=== PATIENT | male | born 2000 | race Caucasian/White ===

== ENCOUNTER 2020-06-23 15:55 | Outpatient (REF) | payer OTHER, SELFPAY | END 2020-06-23 15:56 | disposition home or self-care (01) | LOC: HO.LAB 15:55 | PROVIDERS: Visit Provider Internal Medicine | DX: Z20.828 Contact with and (suspected) exposure to other viral communicable diseases (principal) | CPT/HCPCS: U0003 ==

== ENCOUNTER 2020-09-09 08:56 | Emergency (ER) | payer OTHER, SELFPAY ==
[2020-09-09 09:44] VITALS: BP 133/86; PULSE 60; RESP 18; TEMP 36.9; O2SAT 99; BMI 26.6
--- NOTE | 2020-09-09 10:01 | ED.GENADULT ---
HPI - General Adult General Chief complaint: General Medical Stated complaint: rectal pain Time Seen by Provider: 09/09/20 10:01 Source: patient Mode of arrival: ambulatory Limitations: no limitations History of Present Illness HPI narrative: Patient with one episode of diarrhea, no bleeding, now with rectal pain. No trauma, no fever no chill. Question of swelling Onset (ago): day(s) Severity: mild Quality: sharp Pain Consistency: intermittent Related Data Previous Rx's Medication Instructions Recorded naproxen [Naprosyn] 500 mg PO BID #20 tab 09/09/20 Allergies Allergy/AdvReac Type Severity Reaction Status Date / Time amoxicillin Allergy Angioedema Verified 09/09/20 09:47 Penicillins Allergy Angioedema Verified 09/09/20 09:47 Review of Systems Constitutional: Constitutional: Reports no additional constitutional complaints Eyes: Eyes: Reports no additional eye complaints ENT: Denies dizziness Cardiovascular: Cardiovascular: Reports no additional cardiovascular complaints Respiratory: Respiratory: Reports as per HPI Gastrointestinal: Gastrointestinal: Reports no additional gastrointestinal complaints Musculoskeletal: Musculoskeletal: Reports no additional musculoskeletal complaints Integumentary/Breasts: Skin/Breast: Denies rash Neurologic: Reports system reviewed and no additional complaints, except as documented, Denies dizziness and Denies Sensory deficit (Neuro) Psychiatric: Psychiatric: Denies anxiety [facility] [place] Past Medical History Medical History No known health problems Social History Social History Advance Directives: No Advance Directives Information Provided: Yes Physical Exam Vital Signs: Vital Signs: Last Vital Signs Temp 98.5 F 09/09/20 09:44 Pulse 60 09/09/20 09:44 Resp 18 09/09/20 09:44 BP 133/86 09/09/20 09:44 Pulse Ox 99 09/09/20 09:44 Body Mass Index 26.6 Const: General: healthy appearing Nutritional Appearance: average body habitus Orientation/consciousness: oriented to person and patient oriented x3 Limitations: no limitations HENMT: Head: Yes normal to inspection Ears: external ears normal General nose exam: Normal external nose present Mouth: Normal oral and palatal mucosa present and oropharynx normal Throat: Yes posterior oropharynx normal Eyes: General: appearance normal, both eyes and all related structures Neck: Other: supple Neck: Yes normal visual inspection Chest: Chest palpation & inspection: normal inspection of the chest Resp: Auscultation: clear to auscultation bilaterally Cardio: Jugular venous distension: no JVD Rate: regular rate Rhythm: regular rhythm Heart sounds: S1 normal heart sound present and S2 normal heart sound present GI: Inspection: Yes normal to inspection Palpation (GI): Soft to palpation, nontender and No hepatosplenomegaly present Auscultation: normal bowel sounds : Other: small rectal fissure, no hemorrhoids, no abscess felt. No active bleeding Skin: General skin exam: no rashes or lesions noted Neuro: General: oriented to person and patient oriented x3 Cranial nerves: Yes CN's II-XII intact bilaterally Motor exam (neuro): 5/5 motor strength present throughout Sensory Exam: No Sensory deficit (Neuro) Extrem: General: Yes normal to inspection Psych: Appearance: grossly normal Course Course Course Narrative: will treat with sits baths and NSAIDS Discharge Plan Discharge Clinical Impression: Rectal fissure Patient Disposition: Home, Self-Care Instructions: Anal Fissure (ED) Additional Instructions: sits baths and NSAIDs as directed Prescriptions: New naproxen [Naprosyn] 500 mg tablet 500 mg PO BID Qty: 20 RF: 0 Referrals: Godfrey Olmedo MD [Primary Care Provider] - 2 days
== END 2020-09-09 10:16 | disposition home or self-care (01) ==
PROVIDERS: Emergency Provider Emergency Medicine; PCP Pediatrics
DX: K60.2 Anal fissure, unspecified (principal)
CPT/HCPCS: 99283

== ENCOUNTER 2021-01-21 11:14 | Emergency (ER) | payer OTHER, SELFPAY ==
--- NOTE | ~2021-01-21 | XR_ITS ---
EXAMINATION: XR CHEST CLINICAL INFORMATION: Cough COMPARISON: April 16, 2017 TECHNIQUE: AP portable view of the chest was obtained. FINDINGS: No significant abnormality is noted involving the heart, lungs, mediastinum, bony thorax or soft tissues. XR/XR chest 1V IMPRESSION: No acute disease.
[2021-01-21 11:35] VITALS: BP 127/71; PULSE 83; RESP 16; TEMP 37; O2SAT 97; BMI 25.0
--- NOTE | 2021-01-21 12:37 | ED.URI ---
HPI - URI/Sore Throat General Chief Complaint: Upper Respiratory Symptoms Stated Complaint: covid like symptoms Time Seen by Provider: 01/21/21 11:57 History of Present Illness HPI Narrative: Patient complains of cough worsening with sputum, shortness of breath with wheezing, sore throat, body aches the subjective fever over last several days, he went to urgent care 2 days ago and had a negative COVID and negative strep throat, strep throat test was negative Sore throat is improving but wheezing is getting worse and now cough is productive of sputum Related Data Previous Rx's Medication Instructions Recorded naproxen [Naprosyn] 500 mg PO BID #20 tab 09/09/20 albuterol sulfate 2 inh INHALATION Q4H PRN #1 ea 01/21/21 azithromycin [Zithromax Z-Trae] See Rx Instructions .ROUTE 01/21/21 .COMPLEX #6 tab prednisone 60 mg PO DAILY 5 Days #15 tab 01/21/21 Allergies Allergy/AdvReac Type Severity Reaction Status Date / Time amoxicillin Allergy Angioedema Verified 09/09/20 09:47 Penicillins Allergy Angioedema Verified 09/09/20 09:47 Review of Systems Review of Systems: Positive for sore throat cough and wheezing Negatives are no fever no chills no dizziness no weakness no fainting no feeling faint no headache no ear pain no difficulty breathing or swallowing no palpitations no abdominal pain no nausea vomiting or diarrhea no skin rash Yes all other systems are reviewed and are negative [facility] Past Medical History Source: nursing notes reviewed Medical History No known health problems Social History Social History Advance Directives: Yes Advance Directives Information Provided: Yes Advance Directives on File: No Physical Exam Vital Signs: Vital Signs: Last Vital Signs Temp 98.7 F 01/21/21 14:10 Pulse 82 01/21/21 14:10 Resp 16 01/21/21 14:10 BP 130/66 01/21/21 14:10 Pulse Ox 97 01/21/21 14:10 Body Mass Index 25.0 General appearance is no acute distress, speaking full sentences and O x3 The eyes are clear with no redness or discharge The sinuses are nontender The pharynx is normal and well hydrated with no redness exudate or swelling, voice is normal no drooling Neck is supple without lymphadenopathy The chest had bilateral wheezing, with good air movement no respiratory distress Heart no murmur Abdomen soft nontender Extremities no edema no calf tenderness or swelling Skin no rash Course Course Course Narrative: COVID test and chest x-ray were negative As patient was wheezing a lot he was treated with a nebulizer with some feeling improved, vital signs remained stable breathing at a rate of 16 speaking full sentences but wheezing was only mildly improved there was still bilateral expiratory wheezes, but as he is comfortable he is discharged home started on prednisone As cough is worsening and productive sputum I prescribed Zithromax antibiotic as well MDM - URI/Sore Throat Lab Data Labs: Lab Results 01/21/21 Range/Units 12:11 COVID-19 (JAYESH) Negative (Negative) COVID-19 Clin Com See Note Discharge Plan Discharge Clinical Impression: Asthma, Bronchitis Patient Disposition: Home, Self-Care Additional Instructions: We prescribed antibiotic Zithromax for the worsening cough Albuterol as needed for wheezing Prednisone reduces inflammation and helps asthma Return any time for any worsening difficulty breathing any worse condition any concerns Prescriptions: New albuterol sulfate 90 mcg/actuation aerosol powdr breath activated 2 inh inhalation Q4H PRN (Reason: shortness of breath or wheezing) Qty: 1 RF: 0 azithromycin [Zithromax Z-Trae] 250 mg tablet See Rx Instructions .ROUTE .COMPLEX Qty: 6 RF: 0 prednisone 20 mg tablet 60 mg PO DAILY 5 Days Qty: 15 RF: 0 No Action naproxen [Naprosyn] 500 mg tablet 500 mg PO BID Qty: 20 RF: 0 Stand Alone Forms: Work/School Release Interventions: ED Discharge Assessment Last Done: 01/21/21 14:09 Discharge Date/Time: 01/21/21 14:11
[2021-01-21 12:52] VITALS: O2SAT 95
[2021-01-21] MEDS: Albuterol/Iprat 2.5/0.5MG 3 ML AMPUL.NEB INHALE (12:52)
[2021-01-21 12:56] LABS: COVID-19 Test Negative (Negative); IDNOW Serial# 9DD0AD1C
[2021-01-21] MEDS: predniSONE 20 MG TABLET 60 MG PO (13:23)
[2021-01-21 14:10] VITALS: BP 130/66; PULSE 82; RESP 16; TEMP 37.1; O2SAT 97
== END 2021-01-21 14:11 | disposition home or self-care (01) ==
PROVIDERS: Physician Assistant Medical; Emergency Provider Emergency Medicine
DX: J40 Bronchitis, not specified as acute or chronic (principal); Z20.822 Contact with and (suspected) exposure to COVID-19; J02.9 Acute pharyngitis, unspecified
CPT/HCPCS: 36415; 71045; 87635; 94640; 99284

== ENCOUNTER 2023-02-03 10:50 | Emergency (ER) | payer OTHER, SELFPAY ==
[2023-02-03 11:18] VITALS: BP 113/71; PULSE 79; RESP 18; TEMP 36.4; O2SAT 98; BMI 25.0
--- NOTE | 2023-02-03 11:20 | ED.SKABFB ---
HPI - Skin/Abscess/Foreign Bdy General Chief complaint: Skin/Abscess/Foreign Body Stated complaint: cyst Time Seen by Provider: 02/03/23 13:09 History of Present Illness HPI narrative: Patient complains of recurrent pilonidal abscess which has been developing over last several days no fever no chills no vomiting no abdominal pain no other complaints Related Data Previous Rx's Medication Instructions Recorded naproxen 500 mg tablet (Naprosyn) 500 mg PO BID #20 tabs 09/09/20 albuterol sulfate 90 mcg/actuation 2 inh inhalation Q4H PRN shortness 01/21/21 breath activated powder inhaler of breath or wheezing #1 ea azithromycin 250 mg tablet See Rx Instructions PO .COMPLEX #6 01/21/21 (Zithromax Z-Trae) tabs prednisone 20 mg tablet 60 mg PO DAILY 5 days #15 tabs 01/21/21 doxycycline hyclate 100 mg tablet 100 mg PO BID 7 days #14 tabs 02/03/23 ibuprofen 600 mg tablet 600 mg PO Q6H PRN pain #20 tabs 02/03/23 oxycodone 5 mg tablet 5 mg PO Q6H PRN pain #10 tabs 02/03/23 Allergies Allergy/AdvReac Type Severity Reaction Status Date / Time amoxicillin Allergy Angioedema Verified 09/09/20 09:47 Penicillins Allergy Angioedema Verified 09/09/20 09:47 [facility] Past Medical History Source: nursing notes reviewed Medical History No known health problems Social History Social History Advance Directives: No Advance Directives Information Provided: Yes Physical Exam Vital Signs: Vital Signs: Last Vital Signs Temp 97.6 F 02/03/23 11:18 Pulse 79 02/03/23 11:18 Resp 18 02/03/23 11:18 BP 113/71 02/03/23 11:18 Pulse Ox 98 02/03/23 11:18 O2 Del Method Room Air 02/03/23 11:18 BMI result Body Mass Index 25.0 General appearance no distress Neck is supple Respiratory no distress Abdomen soft nontender Skin exam in the pilonidal area there is a hard red lump in the gluteal cleft, mostly on the right side of the gluteal cleft, there is no surrounding erythema, no other redness or tenderness in the area Course Course Course Narrative: This is a rapid medical exam. Deferred additional HPI, ROS, PE to primary provider. 23 yo male here with abscess in buttocks area, unable to visualize in tria Procedure note the areas cleansed with Betadine anesthesia was initially 8 cc of 1% lidocaine Of 1 cm a vision was may, with no discharge of pus, this was probed to the full extent of the forceps in all directions, he did require more anesthesia for this and there was no significant discharge of pus I attempted to aspirate the hard red lump in the pilonidal area which may be an area of cellulitis or scar tissue and was not able to aspirate anything from that lump and again probing beneath it did not discharge any significant quantity of pus, packing was placed Patient is advised that this may be a cellulitis but as we did get a large quantity of pus it needs to be recheck in 2-3 days he will come back here He does have a surgeon at [facility] and if they have an appointment he will follow-up with them Medications Administered Discontinued Medications Generic Name Dose Route Start Last Admin Trade Name Freq PRN Reason Stop Dose Admin Doxycycline Monohydrate 100 mg 02/03/23 13:18 02/03/23 13:23 Doxycycline Monohydrate 100 Mg Capsule PO 02/03/23 13:19 100 mg ONCE ONE Administration Ibuprofen 600 mg 02/03/23 13:54 02/03/23 13:58 Ibuprofen 600 Mg Tablet PO 02/03/23 13:55 600 mg ONCE ONE Administration Lidocaine HCl 5 ml 02/03/23 13:18 02/03/23 13:24 Lidocaine Hcl 1 % Mpf 5 Ml Vial SUBCUT 02/03/23 13:19 5 ml ONCE ONE Administration Lidocaine HCl 5 ml 02/03/23 13:19 02/03/23 13:24 Lidocaine Hcl 1 % Mpf 5 Ml Vial SUBCUT 02/03/23 13:20 5 ml ONCE ONE Administration Oxycodone HCl 5 mg 02/03/23 13:54 02/03/23 13:58 Oxycodone Hcl Immed Release 5 Mg Tablet PO 02/03/23 13:55 5 mg ONCE ONE Administration Oxycodone HCl 5 mg 02/03/23 14:21 02/03/23 14:29 Oxycodone Hcl Immed Release 5 Mg Tablet PO 02/03/23 14:22 5 mg ONCE ONE Administration Discharge Plan Discharge Clinical Impression: Pilonidal abscess Patient Disposition: Home, Self-Care Additional Instructions: Return to the ER in 2 days, Tuesday for a recheck I was surprised that I did not get significant pus from the abscess cavity which was probed deeply, it may be that the red hard area in the pilonidal area is infected without a pus collection yet so we put you on doxycycline antibiotic Return any time for spreading redness, worse pain and swelling, fever, any sign of worsening infection or any worse condition or concerns Prescriptions: New doxycycline hyclate 100 mg tablet 100 mg PO BID 7 Days Qty: 14 0RF oxycodone 5 mg tablet 5 mg PO Q6H PRN (Reason: pain) Qty: 10 0RF Rx Instructions: Partial Fill upon patient request. ibuprofen 600 mg tablet 600 mg PO Q6H PRN (Reason: pain) Qty: 20 0RF No Action naproxen [Naprosyn] 500 mg tablet 500 mg PO BID Qty: 20 0RF albuterol sulfate 90 mcg/actuation aerosol powdr breath activated 2 inh inhalation Q4H PRN (Reason: shortness of breath or wheezing) Qty: 1 0RF azithromycin [Zithromax Z-Trae] 250 mg tablet See Rx Instructions .ROUTE .COMPLEX Qty: 6 0RF Rx Instructions: take 500 mg today (day 1), then 250 mg for 4 days (days 2-5) prednisone 20 mg tablet 60 mg PO DAILY 5 Days Qty: 15 0RF
[2023-02-03] MEDS: Doxycycline Monohydrate 100 MG CAPSULE PO (13:23)
[2023-02-03] MEDS: Lidocaine HCl 1 % MPF 5 ML VIAL SUBCUT ×2 (13:24)
[2023-02-03] MEDS: oxyCODONE HCl Immed Release 5 MG TABLET PO ×2 (13:58→14:29)
[2023-02-03] MEDS: Ibuprofen 600 MG TABLET PO (13:58)
== END 2023-02-03 14:57 | disposition home or self-care (01) ==
PROVIDERS: Emergency Provider Emergency Medicine; PCP Internal Medicine
DX: L05.01 Pilonidal cyst with abscess (principal); Z79.899 Other long term (current) drug therapy
CPT/HCPCS: 99283; 99284

== ENCOUNTER 2023-02-06 14:41 | Emergency (ER) | payer OTHER, SELFPAY ==
[2023-02-06 14:55] VITALS: BP 116/64; PULSE 90; RESP 18; TEMP 36.6; O2SAT 98; BMI 25.0
--- NOTE | 2023-02-06 15:44 | ED_ITS ---
HPI - Wound/Laceration General Chief Complaint: Wound/Laceration Stated Complaint: follow up? Time Seen by Provider: 02/06/23 15:31 Source: patient Mode of arrival: ambulatory Limitations: no limitations History of Present Illness HPI narrative: 23-year-old male here for wound check. Patient reports he was seen here 2 days ago and had a pilonidal abscess drained was started on doxycycline. The packing fell out prior to the patient coming back in today. He does report some continued pain and swelling. No fevers or chills. Related Data Previous Rx's Medication Instructions Recorded naproxen 500 mg tablet (Naprosyn) 500 mg PO BID #20 tabs 09/09/20 albuterol sulfate 90 mcg/actuation 2 inh inhalation Q4H PRN shortness 01/21/21 breath activated powder inhaler of breath or wheezing #1 ea azithromycin 250 mg tablet See Rx Instructions PO .COMPLEX #6 01/21/21 (Zithromax Z-Trae) tabs prednisone 20 mg tablet 60 mg PO DAILY 5 days #15 tabs 01/21/21 doxycycline hyclate 100 mg tablet 100 mg PO BID 7 days #14 tabs 02/03/23 ibuprofen 600 mg tablet 600 mg PO Q6H PRN pain #20 tabs 02/03/23 oxycodone 5 mg tablet 5 mg PO Q6H PRN pain #10 tabs 02/03/23 sulfamethoxazole 800 1 tab PO BID #14 tabs 02/06/23 mg-trimethoprim 160 mg tablet (Bactrim DS) Allergies Allergy/AdvReac Type Severity Reaction Status Date / Time amoxicillin Allergy Angioedema Verified 02/06/23 14:55 Penicillins Allergy Angioedema Verified 02/06/23 14:55 Review of Systems Review of Systems: Yes all other systems are reviewed and are negative Constitutional: Constitutional: Reports no additional constitutional complaints, Denies body ache(s), Denies chills, Denies fever(s), Denies he adache(s) and Denies weakness Eyes: Eyes: Reports no additional eye complaints and Denies change in vision ENT: Reports system reviewed and no additional complaints, except as documented, Denies dizziness, Denies headache(s), Denies nasal congestion, Denies nasal discharge and Denies neck pain Cardiovascular: Cardiovascular: Reports no additional cardiovascular complaints, Denies chest pain, Denies leg edema and Denies dyspnea Respiratory: Respiratory: Reports no additional respiratory complaints, Denies cough and Denies dyspnea Gastrointestinal: Gastrointestinal: Reports no additional gastrointestinal complaints, Denies abdominal pain, Denies diarrhea, Denies nausea and Denies vomiting Genitourinary: Genitourinary: Denies urinary incontinence Musculoskeletal: Musculoskeletal: Reports no additional musculoskeletal complaints, Denies back pain, Denies arthralgias, Denies joint swelling, Denies neck pain, Denies numbness and Denies tingling Integumentary/Breasts: Skin/Breast: Reports system reviewed and no additional complaints, except as docu, Reports swelling, Reports erythema and Denies rash Neurologic: Reports system reviewed and no additional complaints, except as documented, Denies Abnormal speech present, Denies dizziness, Denies headach e(s), Denies numbness, Denies tingling and Denies weakness PMFSH Past Medical History Attestation statement: The following information was validated with the patient. Source: old records reviewed and nursing notes reviewed Medical History No known health problems Social History Social History Advance Directives: No Advance Directives Information Provided: No Physical Exam Vital Signs: Vital Signs: Last Vital Signs Temp 98 F 02/06/23 14:55 Pulse 90 02/06/23 14:55 Resp 18 02/06/23 14:55 BP 116/64 02/06/23 14:55 Pulse Ox 98 02/06/23 14:55 O2 Del Method Room Air 02/06/23 14:55 BMI result Body Mass Index 25.0 Const: General: cooperative, healthy appearing, comfortable and no acute distress Orientation/consciousness: patient oriented x3 Limitations: no limitations HEENT: Head: Yes normal to inspection Ears: hearing grossly normal bila terally General nose exam: Normal external nose present Face and sinus: Yes normal facial exam Mouth: Normal oral and palatal mucosa present Throat: Yes posterior oropharynx normal Eyes: General: appearance normal, both eyes and all related structures Pupils: Equal, round and reactive pupils present Neck: Neck: Yes normal visual inspection Chest: Chest palpation & inspection: normal inspection of the chest Resp: Effort & Inspection: normal respiratory effort Auscultation: clear to auscultation bilaterally Cardio: Rate: regular rate Rhythm: regular rhythm Peripheral pulses: Peripheral pulses 2+ throughout GI: Inspection: Yes normal to inspection Palpation (GI): Soft to palpation and nontender Auscultation: normal bowel sounds Back/Spine/Pelvis: Thoracic/Lumbar Spine: thoracic and lumbar spine normal to inspection Back/spine/pelvis image: 1. There is a pilonidal abscess present. When I press on the area surrounding the abscess I am able to express all large amount of purulent drainage from the site. Skin: General skin exam: no rashes or lesions noted Neuro: General: patient oriented x3, no focal motor deficits and normal sensation to monofilament Cranial nerves: Yes Equal, round and reactive pupils present Cognition (Neuro): normal cognition Speech: No Abnormal speech present Gait exam (Neuro): Normal gait present Motor exam (neuro): 5/5 motor strength present throughout Extrem: General: Yes normal to inspection Medical Decision Making Medical Decision Making MDM Narrative: 23-year-old male seen here several days ago for pilonidal abscess, had incision and drainage and started on doxycycline. Patient returns today for wound check. Patient states packing fell out prior to arrival. Patient reports continued pain and swelling. On exam patient has a pilonidal abscess present. When I press around the pil onidal abscess I am able to express a large amount of purulent drainage. I did recommend additional incision and drainage today but the patient declined this. Will start patient on Bactrim.. Patient would like to referred to a general surgeon. Differential Diagnosis Differential Diagnoses: The differential diagnosis associated with the presentation includes Pilonidal abscess Discharge Plan Discharge Clinical Impression: Pilonidal abscess Patient Disposition: Home, Self-Care Instructions: Pilonidal Cyst (ED), Sitz Bath (DC) Additional Instructions: Stop doxycycline. Start bactrim Continue warm compresses or do the sitz baths Prescriptions: New sulfamethoxazole-trimethoprim [Bactrim DS] 800-160 mg tablet 1 tab PO BID Qty: 14 0RF No Action naproxen [Naprosyn] 500 mg tablet 500 mg PO BID Qty: 20 0RF albuterol sulfate 90 mcg/actuation aerosol powdr breath activated 2 inh inhalation Q4H PRN (Reason: shortness of breath or wheezing) Qty: 1 0RF azithromycin [Zithromax Z-Trae] 250 mg tablet See Rx Instructions .ROUTE .COMPLEX Qty: 6 0RF Rx Instructions: take 500 mg today (day 1), then 250 mg for 4 days (days 2-5) prednisone 20 mg tablet 60 mg PO DAILY 5 Days Qty: 15 0RF doxycycline hyclate 100 mg tablet 100 mg PO BID 7 Days Qty: 14 0RF oxycodone 5 mg tablet 5 mg PO Q6H PRN (Reason: pain) Qty: 10 0RF Rx Instructions: Partial Fill upon patient request. ibuprofen 600 mg tablet 600 mg PO Q6H PRN (Reason: pain) Qty: 20 0RF Referrals: Nino Gaemz MD [Physician] - 5 days
== END 2023-02-06 17:17 | disposition home or self-care (01) ==
PROVIDERS: Emergency Provider Student in an Organized Health Care Education/Training Program; PCP Internal Medicine
DX: L05.01 Pilonidal cyst with abscess (principal)
CPT/HCPCS: 99281; 99283

== ENCOUNTER → 2023-02-08 09:16 | Outpatient (BNVA) | payer OTHER, SELFPAY | PROVIDERS: PCP Internal Medicine; Referring Provider Internal Medicine; Visit Provider Surgery | DX: L05.01 Pilonidal cyst with abscess (principal) | CPT/HCPCS: 99202 ==

== ENCOUNTER 2023-02-08 13:05 | Day surgery (SDC) | payer OTHER, SELFPAY ==
[2023-02-08 13:28] VITALS: BMI 24.0
[2023-02-08 13:32] VITALS: BP 111/65; PULSE 82; RESP 18; TEMP 36.6; O2SAT 97
[2023-02-08] MEDS: Lactated Ringers 1,000 ML 50 ML IVCONT (13:53)
[2023-02-08 14:09] VITALS: PULSE 72; RESP 16; O2SAT 97
[2023-02-08] MEDS: Albuterol Sulfate (0.083%) 2.5 MG/3 ML VIAL.NEB INHALE (14:09)
--- NOTE | 2023-02-08 14:46 | HO.ANESPROP2 ---
HPI - Anesthesia Eval Consult details Narrative: for I&D abscess PMFSH Active Problems Active Problems: All Active Problems (Updated 02/08/23 @ 09:39 by Norbert Rios MD) Pilonidal abscess of cleft (Acute) Past Medical History Medical History (Updated 02/08/23 @ 09:27 by AMAURY Morse) No known health problems Pilonidal cyst Family History Family history of problems with anesthesia: No Surgical History History of Problems with Anesthesia: No Social History Social History (Updated 02/08/23 @ 09:30 by AMAURY Morse) Alcohol intake: current Alcohol intake frequency: a few times a week Alcohol type: hard liquor Patient Tobacco Use Status: Current everyday Tobacco user Tobacco use type: Cigarette Cigarette Packs Per Day: 1 Cigarettes Per Day: 20.0 Date Education Initiated: 02/08/23 Use of substances other than those prescribed or required for medical reasons: Yes Substance Use Type: Marijuana Substance Use Type Other:: daily, none today Are you DNR?: No Advance Directives: No Advance Directives Information Provided: Yes Meds Allergies Allergy/AdvReac Type Severity Reaction Status Date / Time amoxicillin Allergy Angioedema Verified 02/08/23 09:26 Penicillins Allergy Angioedema Verified 02/08/23 09:26 Active Medications: Current Medications Lactated Ringer's (Lr) 1,000 mls @ 50 mls/hr IVCONT .Q20H CRISTINA Last Admin: 02/08/23 13:53 Dose: 50 mls/hr Clindamycin Phosphate (Cleocin) 900 mg in 50 mls @ 50 mls/hr IV PREOP ONE Stop: 02/08/23 15:35 Home Medications Medication Instructions Recorded Confirmed Last Taken Type bictegravir 50 mg-emtricitabine 1 tab PO DAILY 02/08/23 02/08/23 02/08/23 History 200 mg-tenofovir alafenam 25 mg tablet (Biktarvy) Exam Exam Date and Time: February 08, 2023 1446 Height,Weight and Vital Signs: Height 5 ft 6.5 in Weight 68.492 kg Last Vital Signs Temp 97.9 F 02/08/23 13:32 Pulse 72 02/08/23 14:09 Resp 16 02/08/23 14:09 BP 111/65 02/08/23 13:32 Pulse Ox 97 02/08/23 13:32 O2 Del Method Room Air 02/08/23 13:32 Airway Mallampati Class: I TM Dist: >3cm Neck ROM: Full Loose/Missing/Broken Teeth: No Heart: ok Lungs: ok Assessment and Plan Assessment Anesthesia Assessment: Anesthesia Plan Discussed and Chart Reviewed Final Anesthetic Review Family History of Problems with Anesthesia: No History of Problems with Anesthesia: No NPO: Yes ASA Class: I and Emergency Final Preanesthetic Review: No Changes in Pt Med Stat, Meds/Allgs Chart Reviewed, Consent Obtained/Reviewed and Anes Risks/Benef Reviewed Patient Risk: Low Procedure Risk: Low Anesthetic Plan Anesthetic Plan: MAC: and Agree w/ Assess. and Plan Disposition: Standard PACU
--- NOTE | 2023-02-08 15:28 | W.PM.OPN ---
Operative Note Operative Note Date of Service: 02/08/23 Narrative: Preoperative diagnosis: [] pilonidal abscess of cleft Postop diagnosis: [] Same Procedure [] incision and drainage of pilonidal abscess of cleft Surgeon: [] Gabriel Tube Building Machine Operator: [] eddie Monterroso Type of Anesthesia: [] Mass Indication for surgery: [] Moderately sized abscess of cleft from pilonidal cyst infection Findings: [] Patient brought to the operating room, placed on table in supine position, after adequate level of MAC anesthesia was induced, patient placed in a right lateral decubitus position. The damián cleft area was prepped and draped in usual sterile fashion. Wound was infiltrated with 1% lidocaine/0.5% Marcaine infiltration. A longitudinal incision was made just left of midline over the most fluctuant area and carried down through skin, subcutaneous tissue, where chronic abscess cavity was identified. Purulent material was retrieved. Cultures were taken. Wound was debrided of necrotic debris. Wound was then irrigated, secured hemostasis, and packed with 1 in packing followed by 4 x 4 dressings. Sponge, needle, and instrument counts were reported to be correct. Patient tolerated procedure well and emerged from anesthesia in stable condition. EBL minimal
[2023-02-08 15:44] VITALS: BP 116/70; PULSE 92; RESP 20; TEMP 37; O2SAT 100
[2023-02-08 15:59] VITALS: BP 120/67; PULSE 82; RESP 18; O2SAT 99
[2023-02-08 16:14] VITALS: BP 112/62; PULSE 83; RESP 16; TEMP 37.1; O2SAT 99
== END 2023-02-08 16:28 | disposition home or self-care (01) ==
PROVIDERS: PCP Internal Medicine; Visit Provider Surgery
PROC: (CPT 11770; principal; 2023-02-08 14:40)
DX: L05.01 Pilonidal cyst with abscess (principal); B95.1 Streptococcus, group B, as the cause of diseases classified elsewhere; J45.909 Unspecified asthma, uncomplicated; Z21 Asymptomatic human immunodeficiency virus [HIV] infection status; Z79.899 Other long term (current) drug therapy; Z88.0 Allergy status to penicillin; Z88.1 Allergy status to other antibiotic agents; F17.210 Nicotine dependence, cigarettes, uncomplicated; F12.90 Cannabis use, unspecified, uncomplicated
CPT/HCPCS: 11770; 87070; 87147; 87205; 94640; J1885; J2250; J2405; J2795

== ENCOUNTER → 2023-02-09 11:00 | Outpatient (BNVA) | payer OTHER, SELFPAY | PROVIDERS: PCP Internal Medicine; Visit Provider Surgery | DX: Z48.89 Encounter for other specified surgical aftercare (principal) | CPT/HCPCS: 99211 ==

== ENCOUNTER → 2023-02-10 13:58 | Outpatient (BNVA) | payer OTHER, SELFPAY | PROVIDERS: PCP Internal Medicine; Visit Provider Surgery | DX: L05.91 Pilonidal cyst without abscess (principal) | CPT/HCPCS: 99211 ==

== ENCOUNTER → 2023-02-11 10:54 | Outpatient (BNVA) | payer OTHER, SELFPAY | PROVIDERS: PCP Internal Medicine; Visit Provider Surgery | DX: Z48.1 Encounter for planned postprocedural wound closure (principal) | CPT/HCPCS: 99211 ==

== ENCOUNTER → 2023-02-14 14:54 | Outpatient (BNVA) | payer OTHER, SELFPAY | PROVIDERS: PCP Internal Medicine; Visit Provider Surgery | DX: Z48.00 Encounter for change or removal of nonsurgical wound dressing (principal) | CPT/HCPCS: 99211 ==

== ENCOUNTER → 2023-02-16 13:59 | Outpatient (BNVA) | payer OTHER, SELFPAY | PROVIDERS: PCP Internal Medicine; Visit Provider Surgery ==

== ENCOUNTER 2023-03-14 10:47 | Outpatient (AMB) | payer OTHER, SELFPAY ==
[2023-03-14 11:01] VITALS: BP 134/68; PULSE 77; BMI 24.4
--- NOTE | 2023-03-14 11:01 | MHC.OFFVIS ---
Intake Vital Signs 03/14/23 11:01 Height 5 ft 6 in Weight 151 lb BMI 24.4 BP 134/68 Blood Pressure Location Rt brachial Position Sitting Pulse 77 Intake Visit Reasons: 4 wk follow up pilonidal cyst Intake Note: Patient here s/p pilonidal cyst excision. Reports incision healed well. Denies bleeding, itch or discomfort. No longer taking pain meds. Automotive Vehicle Inspector Required: No Accompanied by: Self / Same As Patient Allergies amoxicillin Allergy (Verified 03/14/23 11:02) Angioedema Penicillins Allergy (Verified 03/14/23 11:02) Angioedema HPI HPI Comments History of Present Illness Details Patient presents for follow-up. Status post I and D of pilonidal abscess. He has had multiple bouts of this. He wished to have this excised. Patient presents with his significant other. [facility] Medical History No known health problems Pilonidal cyst Social History Alcohol intake: current Alcohol intake frequency: a few times a week Alcohol type: hard liquor Patient Tobacco Use Status: Current everyday Tobacco user Tobacco use type: Cigarette Cigarette Packs Per Day: 1 Cigarettes Per Day: 20.0 Substance Use Type: Marijuana Physical Exam Vital Signs: Last Vital Signs Pulse 77 03/14/23 11:01 BP 134/68 03/14/23 11:01 BMI result Body Mass Index 24.4 Chest Other: Chest breath sounds bilaterally, HS 1 in 2 GI Other: Abdomen soft, benign Back/Spine/Pelvis Other: Pilonidal wound of cleft is healing by secondary intention is almost completely healed. Assessment & Plan Assessment & Plan (1) Pilonidal abscess of cleft: Code(s): L05.01 - Pilonidal cyst with abscess Plan Risks, benefits, alternatives of excision of pilonidal cyst of cleft reviewed with patient and significant other and included but not limited to bleeding, infection, recurrence, numbness, pain, scarring, dehiscence formation, seroma formation and patient wishes to proceed. All questions were answered. Arrangements will be made for this. Coding Level of Care Code Est Pt Level 4 (60497) Diagnoses Pilonidal abscess of damián cleft L05.01
== END 2023-03-14 11:13 | disposition home or self-care (01) ==
PROVIDERS: PCP Internal Medicine; Visit Provider Surgery
DX: L05.01 Pilonidal cyst with abscess (principal)
CPT/HCPCS: 99214

== ENCOUNTER → 2023-03-14 10:47 | Outpatient (BNVA) | payer OTHER, SELFPAY | PROVIDERS: PCP Internal Medicine; Visit Provider Surgery | DX: L05.01 Pilonidal cyst with abscess (principal) | CPT/HCPCS: 99212 ==

== ENCOUNTER 2023-03-25 08:26 | Day surgery (SDC) | payer OTHER, SELFPAY ==
[2023-03-22 09:58] VITALS: BMI 24.4
[2023-03-25] VITALS (12 sets, daily range): BP systolic 90–126; BP diastolic 53–74; PULSE 52–91; RESP 16–20; TEMP 36.2–36.4; O2SAT 97–100; BMI 25.0
--- NOTE | 2023-03-25 04:42 | MHC.SHP ---
Pre-Procedural Eval Section A Date of Service: 03/25/23 The patient is an INPATIENT: No Changes since office visit: No Cold of Flu in the past 2 weeks, No New Medical Problems, No Changes in Medication and No Patient answered all questions The History & Physical has been completed within 30 days and I have reviewed it.: Yes Section B Chief Complaint: Pilonidal cyst with abscess Allergies: Allergies Allergy/AdvReac Type Severity Reaction Status Date / Time amoxicillin Allergy Severe Angioedema Verified 03/22/23 09:56 Penicillins Allergy Severe Angioedema Verified 03/22/23 09:56 Plan I have reviewed the history and physical and performed a pertinent physical examination on my patient. No changes have occurred unless specified. Time Spent With Patient Time: Total time managing care of this patient today ____ minutes.
[2023-03-25] MEDS: Lactated Ringers 1,000 ML 100 ML IVCONT (09:02)
--- NOTE | 2023-03-25 09:57 | P.CONAN_ITS ---
HPI - Anesthesia Eval Consult details Narrative: Recurrent pilonidal cyst PMFSH Active Problems Active Problems: All Active Problems (Updated 03/22/23 @ 09:53 by Jenny Lewis RN) Pilonidal abscess of cleft (Acute) Past Medical History Medical History (Updated 03/22/23 @ 09:52 by Jenny Lewis RN) Asthma Pilonidal cyst Family History Family history of problems with anesthesia: No Surgical History Surgical History (Updated 03/22/23 @ 09:53 by Jenny Lewis RN) History of incision and drainage History of Problems with Anesthesia: No Social History Social History Alcohol intake: current Alcohol intake frequency: a few times a week Alcohol type: hard liquor Patient Tobacco Use Status: Former Tobacco user Tobacco use type: Cigarette Cigarette Packs Per Day: 1 Cigarettes Per Day: 20.0 Date Education Initiated: 03/25/23 Use of substances other than those prescribed or required for medical reasons: Yes Substance Use Type: Marijuana Are you DNR?: No Advance Directives: No Advance Directives Information Provided: Yes Meds Allergies Allergy/AdvReac Type Severity Reaction Status Date / Time amoxicillin Allergy Severe Angioedema Verified 03/22/23 09:56 Penicillins Allergy Severe Angioedema Verified 03/22/23 09:56 Active Medications: Current Medications Albuterol Sulfate (Albuterol Sulfate (0.083%) 2.5 Mg/3 Ml Vial.Neb) 2.5 mg INHALE ONCE PRN PRN Reason: Shortness of Breath/Wheezing Lactated Ringer's (Lr) 1,000 mls @ 100 mls/hr IVCONT .Q10H CRISTINA Last Admin: 03/25/23 09:02 Dose: 100 mls/hr Home Medications Medication Instructions Recorded Confirmed Last Taken Type bictegravir 50 mg-emtricitabine 1 tab PO DAILY 02/08/23 03/22/23 02/08/23 His tory 200 mg-tenofovir alafenam 25 mg tablet (Biktarvy) Exam Exam Date and Time: March 25, 2023 0957 Height,Weight and Vital Signs: Height 5 ft 6 in Weight 70.307 kg Last Vital Signs Temp 97.3 F 03/25/23 08:39 Pulse 58 08/04/23 08:39 Resp 18 03/25/23 08:39 BP 126/67 03/25/23 08:39 Pulse Ox 98 03/25/23 08:39 O2 Del Method Room Air 03/25/23 08:39 Airway Mallampati Class: II TM Dist: >3cm Neck ROM: Limited Heart: rrr Lungs: cta Assessment and Plan Assessment Anesthesia Assessment: Anesthesia Plan Discussed and Chart Reviewed Final Anesthetic Review Family History of Problems with Anesthesia: No History of Problems with Anesthesia: No NPO: Yes ASA Class: II Final Preanesthetic Review: No Changes in Pt Med Stat, Meds/Allgs Chart Reviewed, Consent Obtained/Reviewed and Anes Risks/Benef Reviewed Patient Risk: Low Procedure Risk: Low Anesthetic Plan Anesthetic Plan: GA and MAC: Disposition: Standard PACU
--- NOTE | 2023-03-25 12:07 | W.PM.OPN ---
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 Presentation for elective resection. Findings: In Patient brought to the operating room, placed on the operative table in supine position, after adequate level of general anesthesia was induced, patient was placed in the prone sharla-knife position. Pedrito cleft area was prepped and draped in usual sterile fashion and using a bi- elliptical incision around the diseased area of the pilonidal cyst of the pedrito cleft extending more to the right of midline where there was more involved disease, the this carried down through skin, subcutaneous tissue, and undermined using Bovie. Specimen sent to pathology. Wound was irrigated, secured hemostasis, and closed in the following manner; subcutaneous to wound base to contralateral subcutaneous interrupted 0 Vicryl were initially placed. Interrupted inverted 3-0 Vicryl sutures followed by vertical mattress 2-0 Prolene sutures were placed. Wound was infiltrated 0.5% Marcaine at completion. Sterile dressing was applied. Sponge, needle, instrument counts reported correct. Patient tolerated the procedure well and emerged from anesthesia in stable condition. EBL minimal
[2023-03-25] MEDS: fentaNYL citrate/PF 100 MCG/2 ML VIAL 25 MCG IVPUSH ×4 (12:33→13:15)
== END 2023-03-25 13:45 | disposition home or self-care (01) ==
PROVIDERS: PCP Internal Medicine; Visit Provider Surgery
PROC: (CPT 11771; principal; 2023-03-25 10:20)
DX: L05.01 Pilonidal cyst with abscess (principal); J45.909 Unspecified asthma, uncomplicated; F12.90 Cannabis use, unspecified, uncomplicated; Z88.0 Allergy status to penicillin; Z88.1 Allergy status to other antibiotic agents; Z87.891 Personal history of nicotine dependence; Z79.899 Other long term (current) drug therapy
CPT/HCPCS: 11771; 88304; J0131; J1885; J2795; J3010

== ENCOUNTER → 2023-03-25 08:26 | Outpatient (BNV) | payer OTHER, SELFPAY | PROVIDERS: PCP Internal Medicine; Visit Provider Surgery | DX: L05.01 Pilonidal cyst with abscess (principal) | CPT/HCPCS: 11770 ==

== ENCOUNTER 2023-04-04 09:29 | Outpatient (AMB) | payer OTHER, SELFPAY ==
[2023-04-04 09:37] VITALS: BP 108/52; PULSE 80
--- NOTE | 2023-04-04 09:37 | MHC.OFFVIS ---
Intake Vital Signs 04/04/23 09:37 BP 108/52 L Blood Pressure Location Rt radial Position Sitting Pulse 80 Intake Visit Reasons: S/P Pilonidal cyst Intake Note: Patient here s/p pilonidal cyst excision. Patient states site is infected. C/o redness, inflammation, tender to touch. Reports mild bleeding with BM. Finished rx pain meds this morning. Environmental Technician Required: No Accompanied by: Spouse Allergies amoxicillin Allergy (Severe, Verified 04/04/23 09:39) Angioedema Penicillins Allergy (Severe, Verified 04/04/23 09:39) Angioedema HPI HPI Comments History of Present Illness Details Patient presents with his significant other for follow-up. Patient apparently popped of up bottom suture of his incision has had some drainage. Otherwise though the issues or complaints. COUNT INCLUDES THE [facility] Medical History Asthma Pilonidal cyst Surgical History History of incision and drainage Social History Alcohol intake: current Alcohol intake frequency: a few times a week Alcohol type: hard liquor Patient Tobacco Use Status: Former Tobacco user Tobacco use type: Cigarette Cigarette Packs Per Day: 1 Cigarettes Per Day: 20.0 Substance Use Type: Marijuana Physical Exam Vital Signs: Last Vital Signs Pulse 80 04/04/23 09:37 BP 108/52 L 04/04/23 09:37 Back/Spine/Pelvis Other: Wound is clean dry and intact. Bottom 2 sutures have been pulled open. Serous drainage. No evidence of any infection. No purulence. Assessment & Plan Assessment & Plan (1) Pilonidal abscess of cleft: Code(s): L05.01 - Pilonidal cyst with abscess Plan Patient has been reassured there is no infective process. He should keep a gauze dressing in the area as needed. Activities again should be limited so he does not open up the remaining portion of his incision. All questions were answered. Patient will see me as directed for suture removal in approximately 1 weeks time or p.r.n.. Coding Level of Care Code Global (70813) Diagnoses Pilonidal abscess of cleft L05.01
== END 2023-04-04 10:00 | disposition home or self-care (01) ==
PROVIDERS: PCP Internal Medicine; Visit Provider Surgery
DX: L05.01 Pilonidal cyst with abscess (principal)
CPT/HCPCS: 99024

== ENCOUNTER → 2023-04-04 09:29 | Outpatient (BNVA) | payer OTHER, SELFPAY | PROVIDERS: PCP Internal Medicine; Visit Provider Surgery ==

== ENCOUNTER 2023-04-19 09:16 | Outpatient (AMB) | payer OTHER, SELFPAY ==
[2023-04-19 09:34] VITALS: BP 133/73; PULSE 74
--- NOTE | 2023-04-19 09:34 | A.OFFVIS_ITS ---
Intake Vital Signs 04/19/23 09:34 Weight 153 lb BP 133/73 Blood Pressure Location Rt brachial Position Sitting Pulse 74 Intake Visit Reasons: 1 wk follow up pilonidal cyst Intake Note: Patient here to f/u on pilonidal cyst exc. Would like to have sutures removed. Hospital Monitor Required: No Accompanied by: Spouse Allergies amoxicillin Allergy (Severe, Verified 04/19/23 09:35) Angioedema Penicillins Allergy (Severe, Verified 04/19/23 09:35) Angioedema HPI HPI Comments History of Present Illness Details Patient presents for follow-up and suture removal. He has no wound issues or complaints. Presents here with his significant other. PEND[facility] SALE TO [facility] Medical History Asthma Pilonidal cyst Surgical History History of incision and drainage Social History Alcohol intake: current Alcohol intake frequency: a few times a week Alcohol type: hard liquor Patient Tobacco Use Status: Former Tobacco user Tobacco use type: Cigarette Cigarette Packs Per Day: 1 Cigarettes Per Day: 20.0 Substance Use Type: Marijuana Physical Exam Vital Signs: Last Vital Signs Pulse 74 04/19/23 09:34 BP 133/73 04/19/23 09:34 Back/Spine/Pelvis Other: Pilonidal wound is healing uneventfully. The most inferior aspect has been but is healing by secondary intention. Remainder wound has good 1st intention healing. Sutures were uneventfully removed. Dressing applied. Well tolerated. Assessment & Plan Assessment & Plan (1) Pilonidal abscess of damián cleft: Code(s): L05.01 - Pilonidal cyst with abscess Plan Patient has been given local instructions, and work note with light duty restrictions for the 1st 2 weeks we recommenced is a is employment. Patient will follow-up p.r.n.. Coding Level of Care Code Global (53022) Diagnoses Pilonidal abscess of damián cleft L05.01
== END 2023-04-19 09:39 | disposition home or self-care (01) ==
PROVIDERS: PCP Internal Medicine; Visit Provider Surgery
DX: L05.01 Pilonidal cyst with abscess (principal)
CPT/HCPCS: 99024

== ENCOUNTER → 2023-04-19 09:16 | Outpatient (BNVA) | payer OTHER, SELFPAY | PROVIDERS: PCP Internal Medicine; Visit Provider Surgery ==